=== PATIENT | female | born 1980 | race Caucasian/White ===

== ENCOUNTER 2017-10-12 18:41 | Emergency (ER) | payer OTHER ==
[2017-10-12 19:12] VITALS: BP 150/84; PULSE 79; TEMP 98.4; BMI 23.1
--- NOTE | 2017-10-12 19:30 | PDOC ---
History of Present Illness - History of Present Illness Initial Comments: 10/12/17 20:23 Patient is a 37F with a significant past medical history of hypothyroidism, anxiety, depression, acid reflux, who presents with cold symptoms for 4 days . Patient reports that she recently returned from the [place] on Sunday. Sunday she states that she started experiencing a sore throat and runny nose. The next day she began having abdominal pain, nausea, vomiting (non bilious non bloody), and diarrhea. She states that she would eat something, get cramps, and then have loose, watery stools. She states she has been consistently vomiting and diarrhea every day since. She states she vomited 2x today. She also reports feeling weak, a non-productive cough and a rash on her shoulders and neck. She denies fever. Denies h/o asthma. Social Hx: denies smoking. PCP: Kanu Dawson <Ema Huang - Last Filed: 10/12/17 20:23> <Kristie Levy - Last Filed: 10/13/17 00:13> - General Chief Complaint: Cold Symptoms Stated Complaint: FLU LIKE ILLNESS Time Seen by Provider: 10/12/17 19:16 Past History <Ema Huang - Last Filed: 10/12/17 20:23> - Past Medical History COPD: No Thyroid Disease: Yes - Immunization History Td Vaccination: Yes Immunization Up to Date: Yes - Suicide/Smoking/Psychosocial Hx Smoking Status: No Smoking History: Never smoked Years of Tobacco Use: 0 Have you smoked in the past 12 months: No Number of Cigarettes Smoked Daily: 0 Cigars Per Day: 0 Hx Alcohol Use: Yes (SOCIAL) Drug/Substance Use Hx: No Substance Use Type: None <Kristie Levy - Last Filed: 10/13/17 00:13> - Past Medical History Allergies/Adverse Reactions: Allergies Allergy/AdvReac Type Severity Reaction Status Date / Time No Known Allergies Allergy Verified 10/12/17 18:52 Home Medications: Ambulatory Orders Levothyroxine Sodium [Synthroid] 137 mcg PO DAILY 10/12/17 Ondansetron [Zofran Odt -] 4 mg SL TID PRN #10 od.tablet 10/12/17 Review of Systems - Review of Systems Comments:: 10/12/17 20:24 GENERAL/CONSTITUTIONAL: No fever. + weakness. HEAD, EYES, EARS, NOSE AND THROAT: No change in vision. No ear pain or discharge. + sore throat. CARDIOVASCULAR: No chest pain or shortness of breath. RESPIRATORY: +cough, no wheezing, or hemoptysis. GASTROINTESTINAL: +nausea, +vomiting, +diarrhea. No constipation. GENITOURINARY: No dysuria, frequency, or change in urination. MUSCULOSKELETAL: No joint or muscle swelling or pain. No neck or back pain. SKIN: +rash on shoulders/neck NEUROLOGIC: No headache, vertigo, loss of consciousness, or change in strength/ sensation. ENDOCRINE: No increased thirst. No abnormal weight change. HEMATOLOGIC/LYMPHATIC: No anemia, easy bleeding, or history of blood clots. ALLERGIC/IMMUNOLOGIC: No hives or skin allergy. <Ema Huang - Last Filed: 10/12/17 20:23> *Physical Exam - Vital Signs Last Vital Signs Temp Pulse Resp BP Pulse Ox 98.4 F 79 16 150/84 98 10/12/17 18:42 10/12/17 18:42 10/12/17 18:42 10/12/17 18:42 10/12/17 18:42 - Physical Exam Comments: 10/12/17 20:25 GENERAL: Awake, alert, and fully oriented, in no acute distress HEAD: No signs of trauma EYES: PERRLA, EOMI, sclera anicteric, conjunctiva clear ENT: Auricles normal inspection, hearing grossly normal, nares patent, oropharynx clear without exudates. Dry mucous membranes. NECK: Normal ROM, supple, no lymphadenopathy, JVD, or masses LUNGS: Breath sounds equal, clear to auscultation bilaterally. No wheezes, and no crackles HEART: Regular rate and rhythm, normal S1 and S2, no murmurs, rubs or gallops ABDOMEN: Soft, Mild epigastric tenderness without rebound, masses or organomegaly. Normoactive bowel sounds. EXTREMITIES: Normal range of motion, no edema. No clubbing or cyanosis. No cords, erythema, or tenderness NEUROLOGICAL: Cranial nerves II through XII grossly intact. Normal speech, normal gait SKIN: Warm, Dry, normal turgor, Fine maculopapular rash of b/l shoulders, neck, and left antecubital area. <Ema Huang - Last Filed: 10/12/17 20:23> - Vital Signs Last Vital Signs Temp Pulse Resp BP Pulse Ox 98.4 F 79 16 150/84 98 10/12/17 18:42 10/12/17 18:42 10/12/17 18:42 10/12/17 18:42 10/12/17 18:42 <Kristie Levy - Last Filed: 10/13/17 00:13> ED Treatment Course - LABORATORY CBC & Chemistry Diagram: 10/12/17 20:15 10/12/17 20:15 <Kristie Levy - Last Filed: 10/13/17 00:13> Medical Decision Making - Medical Decision Making Documentation has been prepared under my direction and personally reviewed by me in its entirety. I attest that this documented accurately reflects all work, treatment, procedures and medical decision making performed by me. As noted above, this 37-year-old woman presents with several day history of febrile illness accompanied by nausea/vomiting/diarrhea. This began soon after she arrived home from the [facility]. She had been well during her 21- day stay there. Exam as noted. Patient received 2 L of normal saline IV as well as Zofran 4 mg IV. Laboratory evaluation of CBC, chemistry profile, lipase are all essentially normal. Patient felt significantly better with resolution of nausea after IV hydration and Zofran IV. Patient was discharged with prescription for Zofran ODT 4 mg to be used up to 3 times a day as needed for persistent nausea and instructions to maintain clear liquid diet with cautious advancement. <Kristie Levy - Last Filed: 10/13/17 00:13> *DC/Admit/Observation/Transfer <Ema Huang - Last Filed: 10/12/17 20:23> <Krsitie Levy - Last Filed: 10/13/17 00:13> Diagnosis at time of Disposition: Gastroenteritis - Discharge Dispostion Disposition: HOME Condition at time of disposition: Stable - Prescriptions Prescriptions: Ondansetron [Zofran Odt -] 4 mg SL TID PRN #10 od.tablet PRN Reason: Nausea - Referrals Referrals: Samir Bobby MD [Primary Care Provider] - 3 days - Patient Instructions Printed Discharge Instructions: DI for Viral Gastroenteritis -- Adult Additional Instructions: Clear liquids; advance diet cautiously Zofran ODT 4 mg up to 3 times a day as needed for nausea Continue medications as prescribed Follow-up with Dr. Bobby on October 15 Return to ER if you have severe pain/persistent vomiting/ fever Print Language: URUGUAYAN - Post Discharge Activity
[2017-10-12] MEDS ORDERED: SODIUM CHLORIDE 1,000 ML IV STA (20:07)
[2017-10-12] MEDS ORDERED: ONDANSETRON 4 MG/2 ML VIAL IVPUSH ONE (20:07)
[2017-10-12] MEDS ORDERED: ONDANSETRON 4 MG/2 ML VIAL ONE (20:09)
[2017-10-12 20:37] LABS: BASO % 0.5 % (0-2.0); EOS % 1.7 % (0-4.5); HEMATOCRIT 42.2 % (32.4-45.2); HEMOGLOBIN 14.8 GM/dl (10.7-15.3); MCH 28.4 pg (25.7-33.7); MCHC 34.9 g/dl (32.0-36.0); MEAN CELL VOLUME 81.2 fl (80-96); MEAN PLT VOLUME 6.8 fl (7.5-11.1); MONO % 7.5 % (3.8-10.2); NEUT % 38.3 % (42.8-82.8); PLATELET COUNT 379 K/MM3 (134-434); RDW 15.4 % (11.6-15.6); WHITE BLOOD COUNT 6.8 K/mm3 (4.0-10.8)
[2017-10-12 20:49] LABS: ALBUMIN 3.8 g/dl (3.5-5.0); ALK PHOS 54 U/L (32-92); ANION GAP 10 (8-16); BILIRUBIN,TOTAL 0.3 mg/dl (0.2-1.0); BLOOD UREA NITROGEN 7 mg/dl (7-18); CALCIUM 8.7 mg/dl (8.4-10.2); CHLORIDE 102 mmol/L (98-107); CO2 23 mmol/L (22-28); CREATININE 0.7 mg/dl (0.6-1.3); GLUCOSE,RANDOM 87 mg/dl (74-106); POTASSIUM 4.4 mmol/L (3.5-5.1); SGOT/AST 39 U/L (10-42); SGPT/ALT 18 U/L (10-40); SODIUM 135 mmol/L (136-145); TOT PROT 7.7 g/dl (6.4-8.3)
== END 2017-10-12 22:29 | disposition home or self-care (01) ==
LOC: FER 18:41
PROC: 3E033GC Introduction of Other Therapeutic Substance into Peripheral Vein, Percutaneous Approach (ICD-10-PCS; principal; 2017-10-12)
PROC: 3E0337Z Introduction of Electrolytic and Water Balance Substance into Peripheral Vein, Percutaneous Approach (ICD-10-PCS; 2017-10-12)
DX: K52.9 Noninfective gastroenteritis and colitis, unspecified (principal); E07.9 Disorder of thyroid, unspecified; F41.8 Other specified anxiety disorders; K21.9 Gastro-esophageal reflux disease without esophagitis
CPT/HCPCS: 36415; 80053; 83690; 85025; 96361; 96374; 99283-25

== ENCOUNTER 2018-08-31 19:05 | Emergency (ER) | payer OTHER ==
[2018-08-31 19:14] VITALS: BP 126/81; PULSE 77; TEMP 97.7; BMI 23.5
--- NOTE | 2018-08-31 19:20 | PDOC ---
History of Present Illness - General History Source: Patient Exam Limitations: No Limitations - History of Present Illness Initial Comments: 08/31/18 19:36 Patient is a 38 year old female with a significant past medical history of hypothyroidism and acid reflux who presents with epigastric pain with associated nausea and vomiting for the past three days. Patient states she has approximately 2-3 episodes of nonbloody, nonbilious vomit per day. Patient is currently unable to tolerate PO intake. Patient is also complaining of watery stools today. Patient took TUMS and peptobismol with no relief. Patient had an endoscopy a few months ago and was told she had a small ulcer, and subsequently went on a diet. No medications were prescribed for her ulcer. Patient notes she has deviated from her diet during the holidays which she believes may have set off her abdominal pain. Patient admits to headache but denies fever,chills, cp, sob, urinary symptoms. Social Hx: denies smoking, drug or alcohol use. PCP: Kanu Dawson <Dee Gooden - Last Filed: 08/31/18 19:45> <Kristie Levy - Last Filed: 09/01/18 01:33> - General Chief Complaint: Pain Stated Complaint: ABDOMINAL PAIN Time Seen by Provider: 08/31/18 19:09 Past History <Dee Gooden - Last Filed: 08/31/18 19:45> - Past Medical History COPD: No Thyroid Disease: Yes - Immunization History Td Vaccination: Yes Immunization Up to Date: Yes - Suicide/Smoking/Psychosocial Hx Smoking Status: No Smoking History: Never smoked Years of Tobacco Use: 0 Have you smoked in the past 12 months: No Number of Cigarettes Smoked Daily: 0 Cigars Per Day: 0 Hx Alcohol Use: Yes (SOCIAL) Drug/Substance Use Hx: No Substance Use Type: None <Kristie Levy - Last Filed: 09/01/18 01:33> - Past Medical History Allergies/Adverse Reactions: Allergies Allergy/AdvReac Type Severity Reaction Status Date / Time No Known Allergies Allergy Verified 10/12/17 18:52 Home Medications: Ambulatory Orders Levothyroxine Sodium [Synthroid] 137 mcg PO DAILY 10/12/17 Ondansetron [Zofran Odt -] 4 mg SL TID PRN #12 od.tablet 08/31/18 Pantoprazole Sodium [Protonix -] 40 mg PO DAILY #20 tablet.ec 08/31/18 Review of Systems - Review of Systems Able to Perform ROS?: Yes Comments:: 08/31/18 19:34 ADULT ROS GENERAL/CONSTITUTIONAL: No fever or chills. No weakness. HEAD, EYES, EARS, NOSE AND THROAT: No change in vision. No ear pain or discharge. No sore throat. CARDIOVASCULAR: No chest pain or shortness of breath. RESPIRATORY: No cough, wheezing, or hemoptysis. GASTROINTESTINAL: (+) abdominal pain (+) nausea, vomiting, and diarrhea. No constipation. GENITOURINARY: No dysuria, frequency, or change in urination. MUSCULOSKELETAL: No joint or muscle swelling or pain. No neck or back pain. SKIN: No rash NEUROLOGIC: (+) headache. No vertigo, loss of consciousness, or change in strength/sensation. ENDOCRINE: No increased thirst. No abnormal weight change. HEMATOLOGIC/LYMPHATIC: No anemia, easy bleeding, or history of blood clots. ALLERGIC/IMMUNOLOGIC: No hives or skin allergy. <Dee Gooden - Last Filed: 08/31/18 19:45> *Physical Exam - Vital Signs Last Vital Signs Temp Pulse Resp BP Pulse Ox 97.7 F 77 18 126/81 100 08/31/18 19:11 08/31/18 19:11 08/31/18 19:11 08/31/18 19:11 08/31/18 19:11 - Physical Exam Comments: 08/31/18 19:35 ADULT EXAM GENERAL: Awake, alert, and fully oriented, in no acute distress EYES: PERRLA, EOMI, sclera anicteric, conjunctiva clear ENT: Auricles normal inspection, hearing grossly normal, nares patent, oropharynx clear without exudates. (+) Dry mucus membranes. NECK: Normal ROM, supple, no lymphadenopathy, JVD, or masses LUNGS: Breath sounds equal, clear to auscultation bilaterally. No wheezes, and no crackles HEART: Regular rate and rhythm, normal S1 and S2, no murmurs, rubs or gallops ABDOMEN: Soft, normoactive bowel sounds. No guarding, no rebound. No masses. (+ ) Mild epigastric tenderness. EXTREMITIES: Normal range of motion, no edema. No clubbing or cyanosis. No cords, erythema, or tenderness NEUROLOGICAL: Cranial nerves II through XII grossly intact. SKIN: Warm, Dry, normal turgor, no rashes or lesions noted. <Dee Gooden - Last Filed: 08/31/18 19:45> - Vital Signs Last Vital Signs Temp Pulse Resp BP Pulse Ox 97.7 F 77 18 126/81 100 08/31/18 19:11 08/31/18 19:11 08/31/18 19:11 08/31/18 19:11 08/31/18 19:11 <Kristie Levy - Last Filed: 09/01/18 01:33> Moderate Sedation - Procedure Monitoring Vital Signs: Procedure Monitoring Vital Signs Temperature 97.7 F 08/31/18 19:11 Pulse Rate 77 08/31/18 19:11 Respiratory Rate 18 08/31/18 19:11 Blood Pressure 126/81 08/31/18 19:11 O2 Sat by Pulse Oximetry (%) 100 08/31/18 19:11 <Dee Gooden - Last Filed: 08/31/18 19:45> - Procedure Monitoring Vital Signs: Procedure Monitoring Vital Signs Temperature 97.7 F 08/31/18 19:11 Pulse Rate 77 08/31/18 19:11 Respiratory Rate 18 08/31/18 19:11 Blood Pressure 126/81 08/31/18 19:11 O2 Sat by Pulse Oximetry (%) 100 08/31/18 19:11 <Kristie Levy - Last Filed: 09/01/18 01:33> ED Treatment Course - ADDITIONAL ORDERS Additional order review: Laboratory Results 08/31/18 19:14 Urine Color Yellow Urine Appearance Clear Urine pH 6.0 Ur Specific [place] 1.015 Urine Protein Negative Urine Glucose (UA) Negative Urine Ketones Negative Urine Blood Negative Urine Nitrite Positive Urine Bilirubin Negative Urine Urobilinogen 0.2 Ur Leukocyte Esterase Negative Urine HCG, Qual Negative <Dee Gooden - Last Filed: 08/31/18 19:45> - LABORATORY CBC & Chemistry Diagram: 08/31/18 19:38 08/31/18 19:38 <Kristie Levy - Last Filed: 09/01/18 01:33> Progress Note - Progress Note Progress Note: Documentation has been prepared under my direction and personally reviewed by me in its entirety. I attest that this documented accurately reflects all work, treatment, procedures and medical decision making performed by me. <Kristie Levy - Last Filed: 09/01/18 01:33> Medical Decision Making - Medical Decision Making As noted above, this 38-year-old woman with history of GERD presents with a few day history of nausea/vomiting/diarrhea. Onset of symptoms correlated with change in diet from "Nutrisystem" regimen to full holiday menu. Exam as noted. Clinical presentation most consistent with acute gastroenteritis, either food related or viral. Patient is given a liter of normal saline, 20 mg of Pepcid IV; laboratory evaluation is essentially normal. Patient had some relief but residual epigastric discomfort continued. Protonix 40 mg IV administered. Patient felt more comfortable after Protonix. Patient will be discharged with instructions to maintain clear liquid diet and advance to full diet very carefully. Protonix 40 mg by mouth daily prescribed. Patient will follow-up with her mobile marketing manager within the next several days. She has worsening pain/vomiting she should return to the ER <Kristie Levy - Last Filed: 09/01/18 01:33> *DC/Admit/Observation/Transfer - Attestations Scribe Attestion: 08/31/18 19:35 Documentation prepared by Dee Gooden, acting as medical practice administrator for Kristie Levy MD. <Dee Gooden - Last Filed: 08/31/18 19:45> <Kristie Levy - Last Filed: 09/01/18 01:33> Diagnosis at time of Disposition: Gastroenteritis - Discharge Dispostion Disposition: HOME Condition at time of disposition: Stable - Prescriptions Prescriptions: Ondansetron [Zofran Odt -] 4 mg SL TID PRN #12 od.tablet PRN Reason: Nausea Pantoprazole Sodium [Protonix -] 40 mg PO DAILY #20 tablet.ec - Referrals Referrals: Samir Bobby MD [Primary Care Provider] - - Patient Instructions Printed Discharge Instructions: DI for Viral Gastroenteritis -- Adult Additional Instructions: Clear liquids; advance diet cautiously avoid acidic foods Protonix 40 mg daily Zofran ODT 4 mg up to 3 times a day as needed for nausea Follow-up with your mobile marketing manager within the next 5 days Return to ER if you have persistent vomiting or develop severe, persistent abdominal pain - Post Discharge Activity
[2018-08-31 19:27] LABS: URINE APPEARANCE Clear; URINE BILIRUBIN Negative (NEGATIVE); URINE COLOR Yellow; URINE GLUCOSE (UA) Negative (NEGATIVE); URINE KETONE Negative (NEGATIVE); URINE LEUK ESTERASE Negative (NEGATIVE); URINE NITRITE Positive (NEGATIVE); URINE PROTEIN Negative (NEGATIVE); URINE UROBILINOGEN 0.2 (0.2-1.0)
[2018-08-31 19:33] LABS: HCG,QUALITATIVE URINE Negative
[2018-08-31] MEDS ORDERED: SODIUM CHLORIDE 1,000 ML IV STA (19:39)
[2018-08-31] MEDS ORDERED: ONDANSETRON 4 MG/2 ML VIAL IVPUSH ONE (19:39)
[2018-08-31] MEDS ORDERED: FAMOTIDINE 20 MG/50 ML IVPB 20 MG/50 ML MG IVPB ONE ×2 (19:40→19:46)
[2018-08-31] MEDS ORDERED: ONDANSETRON 4 MG/2 ML VIAL ONE (19:47)
[2018-08-31 20:37] LABS: EPI CELLS FEW /HPF; URINE BACTERIA 2+ /hpf (NEGATIVE); URINE RBC 0-2 /hpf (0-3); URINE WBC 0-2 (0-5)
[2018-08-31 20:43] LABS: BASO % 0.6 % (0-2.0); EOS % 0.7 % (0-4.5); HEMATOCRIT 39.8 % (32.4-45.2); HEMOGLOBIN 13.1 GM/dl (10.7-15.3); LYMPH % 56.4 % (8-40); MCH 31.9 pg (25.7-33.7); MEAN CELL VOLUME 96.6 fl (80-96); MEAN PLT VOLUME 7.5 fl (7.5-11.1); MONO % 6.5 % (3.8-10.2); NEUT % 35.8 % (42.8-82.8); PLATELET COUNT 382 K/MM3 (134-434); RBC 4.11 M/mm3 (3.60-5.2); RDW 13.5 % (11.6-15.6); WHITE BLOOD COUNT 7.1 K/mm3 (4.0-10.8)
[2018-08-31 21:00] LABS: ALK PHOS 42 U/L (32-92); ANION GAP 8 MMOL/L (8-16); BILIRUBIN,TOTAL 0.2 mg/dl (0.2-1.0); BLOOD UREA NITROGEN 10 mg/dl (7-18); CHLORIDE 109 mmol/L (98-107); CO2 18 mmol/L (22-28); CREATININE 0.6 mg/dl (0.6-1.3); GLUCOSE,RANDOM 85 mg/dl (74-106); POTASSIUM 3.7 mmol/L (3.5-5.1); SGOT/AST 37 U/L (10-42); SGPT/ALT 26 U/L (10-40); SODIUM 135 mmol/L (136-145); TOT PROT 6.1 g/dl (6.4-8.3)
[2018-08-31] MEDS ORDERED: PANTOPRAZOLE SODIUM 40 MG VIAL IVPB ONE (21:25)
[2018-08-31] MEDS ORDERED: PANTOPRAZOLE SODIUM 40 MG VIAL ONE (21:29)
[2018-08-31 21:52] LABS: LIPASE 331 U/L (73-393)
== END 2018-08-31 22:17 | disposition home or self-care (01) ==
LOC: FER 19:05
DX: K52.9 Noninfective gastroenteritis and colitis, unspecified (principal); K21.9 Gastro-esophageal reflux disease without esophagitis
CPT/HCPCS: 36415; 80053; 81003; 81015; 83690; 84703; 85025; 87086; 87186; 99283-25; J7030

== ENCOUNTER 2019-03-04 07:27 | Emergency (ER) | payer OTHER ==
[2019-03-04 07:43] VITALS: BMI 23.1
[2019-03-04] MEDS ORDERED: ACETAMINOPHEN 1000 MG/100 ML VIAL (NON FORMULARY) IVPB ONE (07:54)
[2019-03-04] MEDS ORDERED: ONDANSETRON 4 MG/2 ML VIAL IVPUSH ONE (07:55)
[2019-03-04] MEDS ORDERED: ONDANSETRON 4 MG/2 ML VIAL ONE (08:08)
[2019-03-04] MEDS ORDERED: ACETAMINOPHEN INJECTION 100 ML IVPB ONE (08:08)
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
[2019-03-04 08:38] LABS: BASO % 0.9 % (0-2.0); EOS % 0.4 % (0-4.5); HEMATOCRIT 41.1 % (32.4-45.2); HEMOGLOBIN 14.1 GM/dL (10.7-15.3); LYMPH % 33.6 % (8-40); MCH 34.9 pg (25.7-33.7); MCHC 34.3 g/dl (32.0-36.0); MEAN CELL VOLUME 101.8 fl (80-96); MEAN PLT VOLUME 6.7 fl (7.5-11.1); MONO % 5.7 % (3.8-10.2); NEUT % 59.4 % (42.8-82.8); PLATELET COUNT 409 K/MM3 (134-434); RBC 4.04 M/mm3 (3.60-5.2); RDW 21.5 % (11.6-15.6); WHITE BLOOD COUNT 6.5 K/mm3 (4.0-10.0)
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
[2019-03-04 10:25] LABS: ALBUMIN 3.8 g/dl (3.4-5.0); BILIRUBIN,TOTAL 0.8 mg/dL (0.2-1); BLOOD UREA NITROGEN 10.7 mg/dL (7-18); CALCIUM 8.5 mg/dL (8.5-10.1); CREATININE 0.7 mg/dL (0.55-1.3); POTASSIUM 4.4 mmol/L (3.5-5.1)
[2019-03-04 11:15] LABS: ANISOCYTOSIS 1+; MACROCYTOSIS 0; PLATELET ESTIMATE NORMAL
[2019-03-04 11:54] VITALS: BP 124/75; PULSE 98
== END 2019-03-04 11:55 | disposition home or self-care (01) ==
LOC: JER 07:27
PROC: 3E033NZ Introduction of Analgesics, Hypnotics, Sedatives into Peripheral Vein, Percutaneous Approach (ICD-10-PCS; principal; 2019-03-04)
PROC: 3E033GC Introduction of Other Therapeutic Substance into Peripheral Vein, Percutaneous Approach (ICD-10-PCS; 2019-03-04)
DX: S09.8XXA Other specified injuries of head, initial encounter (principal); R51 Headache; M54.2 Cervicalgia; M25.511 Pain in right shoulder; M25.512 Pain in left shoulder; R04.0 Epistaxis; V47.5XXA Car driver injured in collision with fixed or stationary object in traffic accident, initial encounter; Y92.414 Local residential or business street as the place of occurrence of the external cause; Y93.89 Activity, other specified; Y99.8 Other external cause status
CPT/HCPCS: 36415; 70450-TC; 70486-TC; 80053; 84703; 85025; 99282-25; J0131

== ENCOUNTER 2023-01-26 14:45 | Emergency (ER) | payer OTHER ==
[2023-01-26 14:59] VITALS: BP 128/80; PULSE 80; RESP 15; TEMP 98.7; BMI 21.1
== END 2023-01-26 15:33 | disposition home or self-care (01) ==
LOC: FER 14:45
DX: H92.02 Otalgia, left ear (principal); R22.0 Localized swelling, mass and lump, head; S00.432A Contusion of left ear, initial encounter; S00.412A Abrasion of left ear, initial encounter; X58.XXXA Exposure to other specified factors, initial encounter
CPT/HCPCS: 99282-25